=== PATIENT | female | born 1965 | race Caucasian/White ===

== ENCOUNTER 2022-09-06 09:35 | Day surgery (SDC) | payer OTHER, MEDICAID ==
[2022-08-30 13:03] LABS: ALBUMIN 3.4 g/dL (3.4-4.8); BASOPHILS % (AUTO) 0.3 % (0.0-2.0); CALCIUM 9.5 mg/dL (8.4-11.0); CREATININE 0.82 mg/dL (0.55-1.30); EOSINOPHILS % (AUTO) 1.2 % (0.0-4.0); HEMOGLOBIN 13.7 g/dL (12.0-16.0); LYMPHOCYTES # (AUTO) 1.7 K/uL (1.0-5.5); LYMPHOCYTES % (AUTO) 39.4 % (20.5-51.5); MEAN CORPUSCULAR HEMOGLOBIN 27 pg (27-31); MEAN CORPUSCULAR HGB CONC 33 % (32-36); MEAN CORPUSCULAR VOLUME 82 fL (79.0-98.0); MONOCYTES # (AUTO) 0.3 K/uL (0.0-1.0); MONOCYTES % (AUTO) 7.2 % (1.7-9.3); NEUTROPHILS # (AUTO) 2.2 K/uL (1.8-7.7); NEUTROPHILS % (AUTO) 51.9 % (40.0-70.0); PLATELET COUNT (AUTO) 320 K/uL (130-430); RED BLOOD CELL COUNT(AUTO) 5.15 MIL/uL (4.2-6.2); RED CELL DISTRIBUTION WIDTH 14.5 % (9.0-15.0); TOTAL BILIRUBIN 0.3 mg/dL (0.0-1.0); WHITE BLOOD COUNT (AUTO) 4.2 K/uL (4.8-10.8)
[~2022-09-06] VITALS: Ht 175.3 cm; Wt 111.1 kg
[2022-09-06 11:10] LABS: HCG,QUAL RESULT NEGATIVE (NEGATIVE)
[2022-09-06] MEDS ORDERED: PROPOFOL 200MG/ 20ML VIAL (DIPRIVAN) IV ONE (11:46)
[2022-09-06] MEDS ORDERED: SUCCINYLCHOLINE CHLORIDE 20 MG/ML(QUELICIN) ONE (11:46)
[2022-09-06] MEDS ORDERED: KETOROLAC TROMETHAMINE 30 MG VIAL ONE (11:46)
[2022-09-06] MEDS ORDERED: LR 1,000 ML IV.SOLN IV ONE (11:46)
[2022-09-06] MEDS ORDERED: DEXAMETHASONE SOD PHOSPHATE 4 MG/ML VIAL ONE (11:46)
[2022-09-06] MEDS ORDERED: WATER FOR IRRIGATION,STERILE 1,000 ML IRRIG.SOLN IR ONE (11:46)
[2022-09-06] MEDS ORDERED: DESFLURANE 15 MIN GAS INH ONE (11:46)
[2022-09-06] MEDS ORDERED: NS IRRIG SOLN 1000 ML IR ONE (11:46)
[2022-09-06] MEDS ORDERED: fentaNYL CITRATE/PF 100 MCG/2 ML AMP ONE (11:46)
[2022-09-06] MEDS ORDERED: ALBUTEROL MDI INHALATION 8 GM INH ONE (11:46)
[2022-09-06] MEDS ORDERED: ONDANSETRON HCL 4 MG/2 ML VIAL ONE (11:46)
[2022-09-06 12:45] VITALS: O2SAT 100
[2022-09-06] MEDS ORDERED: ALBUTEROL SULFATE 0.083% 2.5 MG/3 ML VIAL.NEB INH ONE ×2 (12:45→12:53)
[2022-09-06] MEDS ORDERED: HYDROmorphone 1 MG/ML INJ. CARTRIDGE IVP PRN ×2 (13:00)
[2022-09-06] MEDS ORDERED: DEXTROMET/BENZOCAIN/MENTHOL SF 1 LOZENGE MM ONE (15:15)
[2022-09-06] MEDS ORDERED: BENZOCAINE/MENTHOL 1 EACH LOZENGE MM ONE (15:15)
[2022-09-06] MEDS ORDERED: DIPHENHYDRAMINE INJ 50 MG/ML VIAL IVP ONE (15:45)
[2022-09-06] MEDS ORDERED: DIPHENHYDRAMINE INJ 50 MG/ML VIAL ONE (15:51)
[2022-09-06] MEDS ORDERED: ALBUTEROL SULFATE 0.083% 2.5 MG/3 ML VIAL.NEB INH PRN (18:00)
[2022-09-06] MEDS ORDERED: HYDROcodone/ACETAMIN 7.5-325 MG TAB PO PRN (18:00)
[2022-09-06 18:50] VITALS: BP_SYST 138; PULSE 95; RESP 16; TEMP 98.2; O2SAT 95
[2022-09-06 19:54] VITALS: BP_SYST 138; PULSE 88; O2SAT 96
[2022-09-06 20:00] VITALS: BP_SYST 128; PULSE 91; RESP 16; TEMP 98.1; O2SAT 96
[2022-09-06] MEDS ORDERED: FERROUS SULFATE 325 MG TABLET.DR PO ONE (20:00)
[2022-09-06] MEDS: IBUPROFEN 600 MG TABLET PO PRN (20:51)
[2022-09-06] MEDS ORDERED: BENZOCAINE/MENTHOL 1 EACH LOZENGE MM PRN (21:00)
[2022-09-06] MEDS ORDERED: [UNRECOGNIZED DRUG - OTHER] MM PRN (21:00)
[2022-09-06] MEDS ORDERED: guaiFENesin ER 600 MG TAB ONE (21:29)
[2022-09-07 02:04] VITALS: BP_SYST 124; PULSE 91; RESP 17; TEMP 97.9; O2SAT 96
[2022-09-07 04:00] VITALS: BP_SYST 118; PULSE 65; RESP 18; TEMP 97.8; O2SAT 96
[2022-09-07 07:42] VITALS: BP_SYST 126; PULSE 76; RESP 18; TEMP 96.8; O2SAT 99
[2022-09-07] MEDS: IBUPROFEN 600 MG TABLET PO PRN (08:16)
[2022-09-07] MEDS ORDERED: FERROUS SULFATE 325 MG TABLET.DR PO SCH (09:00)
[2022-09-07 10:20] VITALS: BP_SYST 129; PULSE 79; RESP 20; TEMP 96.9; O2SAT 99
[2022-09-07 12:01] VITALS: BP_SYST 148; PULSE 75; RESP 16; TEMP 97.2; O2SAT 96
== END 2022-09-07 11:50 | disposition home or self-care (01) ==
LOC: STU 09:35 → SDS 09:35 → SMU 09:36 → SDS 09-07 11:50
PROVIDERS: ATTEND Obstetrics & Gynecology
DX: N95.0 Postmenopausal bleeding (principal); N84.0 Polyp of corpus uteri; J45.909 Unspecified asthma, uncomplicated; R94.31 Abnormal electrocardiogram [ECG] [EKG]; N94.89 Other specified conditions associated with female genital organs and menstrual cycle
CPT/HCPCS: 80053; 84702; 85025; 87081; 36415 ×2; 58558; 84703; 84484; 93005 ×2; 94640; 88305; J1100; J1200; J1885; J2405; J2704; J0330; J3010; J7613; J7120; G0378